=== PATIENT | male | born 1935 | race Caucasian/White ===

== ENCOUNTER 2024-01-29 11:48 | Day surgery (SDC) | payer MEDICARE, OTHER ==
[~2024-01-29] VITALS: Ht 170.2 cm; Wt 86.2 kg
[2024-01-29] VITALS (11 sets, daily range): BP systolic 95–120; BP diastolic 56–66; PULSE 60–64; RESP 15–21; TEMP 98.7; O2SAT 94–97
[~2024-01-29 11:48] MED LIST: DIPH25TA62 PO; PRED50TA PO; RANI-366 PO
[2024-01-29] MEDS ORDERED: heparin 1,000unit/ml 10ml vial 10 ML ONE (12:23)
[2024-01-29] MEDS ORDERED: fentaNYL/PF 50MCG/1 ML 2ML syringe ONE (12:23)
[2024-01-29] MEDS ORDERED: iohexol 300mg/ml 100ml inj. ONE (12:23)
[2024-01-29] MEDS ORDERED: verapamil 2.5 mg/ml inj IV ONE (12:23)
[2024-01-29] MEDS ORDERED: midazolam 1 mg/ML 2ml injection ONE (12:23)
[2024-01-29] MEDS ORDERED: LIDOcaine 1% (10mg/ml) 2ml vial ONE ×2 (12:23→12:42)
[2024-01-29] MEDS ORDERED: heparin 1,000 UNITS/NS 500ml 500 ML ONE (12:24)
[2024-01-29] MEDS ORDERED: nitroGLYCERIN 500mcg/5mL D5W 5 ML IV ONE (12:24)
[2024-01-29] MEDS ORDERED: LORazepam 0.5 MG tablet PO PRN (12:45)
[2024-01-29 13:00] LABS: BASOPHILS % (AUTO) 0.5 % (0-1); EOSINOPHILS # (AUTO) 0.2 X10'3 (0-0.9); EOSINOPHILS % (AUTO) 3.5 % (0-6); HEMATOCRIT 41.3 % (42.0-52.0); LYMPHOCYTES # (AUTO) 0.9 X10'3 (1.1-4.8); LYMPHOCYTES % (AUTO) 18.8 % (21-51); MEAN CORPUSCULAR HEMOGLOBIN 33.6 PG (27.0-31.0); MEAN CORPUSCULAR HGB CONC 33.9 g/dL (33.0-36.5); MEAN CORPUSCULAR VOLUME 99.3 FL (78-98); MEAN PLATELET VOLUME 6.8 FL (7.4-10.4); MONOCYTES # (AUTO) 0.5 X10'3 (0-0.9); NEUTROPHILS # (AUTO) 3.2 X10'3 (1.8-7.7); NEUTROPHILS % (AUTO) 67.2 % (42-75); PLATELET COUNT 256 X10'3 (140-440); RED BLOOD COUNT 4.16 X10'6 (4.70-6.10); WHITE BLOOD COUNT 4.8 X10'3 (4.5-11.0)
[2024-01-29] MEDS: diphenhydrAMINE 25mg capsule PO PRN (13:04)
[2024-01-29] MEDS ORDERED: OMEP20CA16 PO (13:05)
[2024-01-29] MEDS: normal saline 1,000 ML IV SCH (13:05)
[2024-01-29] MEDS ORDERED: GLIP5TAB23 PO (13:05)
[2024-01-29 13:09] LABS: INR 1.1 INR; PROTHROMBIN TIME 11.5 SECONDS (9.0-12.0)
[2024-01-29 13:10] LABS: ALBUMIN 3.4 G/DL (3.4-5.0); ANION GAP 6 (8-16); BLOOD UREA NITROGEN 18 MG/DL (7-18); BUN/CREATININE RATIO 20.7 (10.0-20.0); CALCIUM 9.2 MG/DL (8.5-10.1); CHLORIDE 105 MMOL/L (99-107); CREATININE 0.87 MG/DL (0.60-1.10); GLUCOSE 109 MG/DL (70-104); POTASSIUM 3.9 MMOL/L (3.5-5.1); SODIUM 139 MMOL/L (135-145); eCRCL 56 ML/MIN; eGFR 83 ML/MIN
[2024-01-29] MEDS ORDERED: BUDE10.2 INH (13:13)
[2024-01-29] MEDS ORDERED: LOSA50TA64 PO (13:13)
[2024-01-29] MEDS ORDERED: PIOG30TA10 PO (13:13)
[2024-01-29] MEDS ORDERED: METF-438 PO (13:13)
[2024-01-29] MEDS ORDERED: ATRNS BOTHNARES (13:15)
[2024-01-29] MEDS ORDERED: CYAN-34 PO (13:22)
[2024-01-29] MEDS ORDERED: ASCO500C17 PO (13:22)
[2024-01-29] MEDS ORDERED: ASPI81TA52 PO (13:22)
[2024-01-29] MEDS ORDERED: KRIL1CAP19 PO (13:22)
[2024-01-29] MEDS ORDERED: vitamin D3 (13:22)
[2024-01-29] MEDS ORDERED: CETI10TA19 PO (13:22)
[2024-01-29] MEDS ORDERED: [UNRECOGNIZED DRUG - OTHER] POPLITEAL (13:22)
[2024-01-29 14:17] LABS: ISTAT HGB ART 12.9 g/dl (14.0-17.9); ISTAT Hct ART 38 %PCV (42-52); ISTAT O2 SATURATION ARTERIAL 95 % (95-98); ISTAT SOURCE ART
[2024-01-29 14:37] LABS: CHOL/HDL RATIO 2.3 (0.00-4.99); CHOLESTEROL 119 MG/DL (0-200); HDL CHOLESTEROL 52 MG/DL (35-60); LDL CHOLESTEROL 63 MG/DL (50-100); TRIGLYCERIDES 58 MG/DL (20-135)
[2024-01-29] MEDS ORDERED: HYDROcodone/acetaminophen 10/325mg tab PO PRN (14:40)
[2024-01-29] MEDS ORDERED: HYDROcodone/acetaminophen 5mg/325mg tablet PO PRN (14:40)
[2024-01-29 14:54] LABS: ISTAT HGB MIX 12.6 g/dl (14.0-17.9); ISTAT Hct MIX 37 %PCV (42-52); ISTAT O2 SATURATION MIX VENOUS 72 % (60-80); ISTAT SOURCE VEN
== END 2024-01-29 17:20 | disposition home or self-care (01) ==
LOC: SSTAY O 11:48
PROVIDERS: ATTEND Student in an Organized Health Care Education/Training Program
DX: I35.0 Nonrheumatic aortic (valve) stenosis (principal); I10 Essential (primary) hypertension; E78.5 Hyperlipidemia, unspecified; E11.9 Type 2 diabetes mellitus without complications; K21.9 Gastro-esophageal reflux disease without esophagitis; Z79.899 Other long term (current) drug therapy
CPT/HCPCS: 36415; 80048; 80061; 82803; 82948; 85014; 85025; 85610; 93005; 93456; 99152; A6258; A6402; C1751; C1894; J1644; J2001; J2250; J3010; J3490; J7030; Q0163; Q9967; Z7610; 99153

== ENCOUNTER 2024-02-15 10:29 | Outpatient (CLI) | payer MEDICARE, OTHER ==
[~2024-02-15 10:29] MED LIST changes: +ASCO500C17 PO; +ASPI81TA52 PO; +ATRNS BOTHNARES; +BUDE10.2 INH; +CETI10TA19 PO; +CYAN-34 PO; -DIPH25TA62 PO; +GLIP5TAB23 PO; +IODIXANOL 320 MG/ML INFUS..BTL 100ML IV ONE; +KRIL1CAP19 PO; +LOSA50TA64 PO; +METF-438 PO; +OMEP20CA16 PO; +PIOG30TA10 PO; -PRED50TA PO; -RANI-366 PO; +[UNRECOGNIZED DRUG - OTHER] POPLITEAL; +vitamin D3
[2024-02-15 11:00] LABS: BASOPHILS % (AUTO) 0.5 % (0-1); EOSINOPHILS # (AUTO) 0.2 X10'3 (0-0.9); EOSINOPHILS % (AUTO) 3.3 % (0-6); HEMATOCRIT 41.5 % (42.0-52.0); HEMOGLOBIN 14.1 g/dl (14.0-17.9); LYMPHOCYTES # (AUTO) 0.8 X10'3 (1.1-4.8); LYMPHOCYTES % (AUTO) 17.8 % (21-51); MEAN CORPUSCULAR HEMOGLOBIN 33.7 PG (27.0-31.0); MEAN CORPUSCULAR HGB CONC 33.9 g/dL (33.0-36.5); MEAN CORPUSCULAR VOLUME 99.4 FL (78-98); MONOCYTES # (AUTO) 0.4 X10'3 (0-0.9); MONOCYTES % (AUTO) 8.9 % (2-12); NEUTROPHILS # (AUTO) 3.3 X10'3 (1.8-7.7); NEUTROPHILS % (AUTO) 69.5 % (42-75); PLATELET COUNT 256 X10'3 (140-440); RED BLOOD COUNT 4.17 X10'6 (4.70-6.10); RED CELL DISTRIBUTION WIDTH 14.2 % (11.5-14.5); WHITE BLOOD COUNT 4.7 X10'3 (4.5-11.0)
[2024-02-15 11:09] LABS: APTT 27 SECONDS (22-32); INR 1.1 INR; PROTHROMBIN TIME 11.8 SECONDS (9.0-12.0)
[2024-02-15 11:10] LABS: ALANINE AMINOTRANSFERASE 34 U/L (12-78); ALBUMIN 3.5 G/DL (3.4-5.0); ALKALINE PHOSPHATASE 82 IU/L (46-116); ANION GAP 8 (8-16); ASPARTATE AMINO TRANSFERASE 26 U/L (10-37); BILIRUBIN,TOTAL 0.5 MG/DL (0.1-1.0); BLOOD UREA NITROGEN 18 MG/DL (7-18); BUN/CREATININE RATIO 18.2 (10.0-20.0); CALCIUM 9.3 MG/DL (8.5-10.1); CHLORIDE 104 MMOL/L (99-107); CREATININE 0.99 MG/DL (0.60-1.10); GLUCOSE 235 MG/DL (70-104); POTASSIUM 4.3 MMOL/L (3.5-5.1); SODIUM 138 MMOL/L (135-145); TOTAL CARBON DIOXIDE 26.4 MMOL/L (24-32); TOTAL PROTEIN 6.9 G/DL (6.4-8.2); eGFR 72 ML/MIN
[2024-02-15 11:18] LABS: PRO BRAIN NATRIURETIC PEPTIDE 120 PG/ML (0-450)
[2024-02-15 13:31] VITALS: PULSE 60; RESP 16; O2SAT 98
== END 2024-02-15 23:59 | disposition home or self-care (01) ==
LOC: RAD 10:29
PROVIDERS: ATTEND Internal Medicine Cardiovascular Disease
DX: I35.0 Nonrheumatic aortic (valve) stenosis (principal); K57.90 Diverticulosis of intestine, part unspecified, without perforation or abscess without bleeding; R06.02 Shortness of breath; I65.29 Occlusion and stenosis of unspecified carotid artery; M47.816 Spondylosis without myelopathy or radiculopathy, lumbar region; M25.78 Osteophyte, vertebrae
CPT/HCPCS: 36415; 71046; 71275; 74174; 75572; 80053; 83880; 85025; 85610; 85730; 94010; 94727; 94729; 94760; Q9967

== ENCOUNTER 2024-03-29 06:07 | Inpatient (IN) | payer MEDICARE, OTHER ==
[2024-03-21 14:19] LABS: BASOPHILS % (AUTO) 0.6 % (0-1); EOSINOPHILS # (AUTO) 0.2 X10'3 (0-0.9); EOSINOPHILS % (AUTO) 3.4 % (0-6); LYMPHOCYTES % (AUTO) 18.3 % (21-51); MEAN CORPUSCULAR HEMOGLOBIN 33.6 PG (27.0-31.0); MEAN CORPUSCULAR HGB CONC 33.7 g/dL (33.0-36.5); MEAN CORPUSCULAR VOLUME 99.5 FL (78-98); MEAN PLATELET VOLUME 7.1 FL (7.4-10.4); MONOCYTES # (AUTO) 0.5 X10'3 (0-0.9); MONOCYTES % (AUTO) 9.6 % (2-12); NEUTROPHILS # (AUTO) 3.7 X10'3 (1.8-7.7); NEUTROPHILS % (AUTO) 68.1 % (42-75); PRE OP HEMATOCRIT 40.4 % (42.0-52.0); PRE OP HEMOGLOBIN 13.6 g/dL (14.0-17.9); PRE OP PLATELET COUNT 224 X10'3 (140-440); PRE OP WHITE BLOOD COUNT 5.4 10'3 (4.8-10.8); RED BLOOD COUNT 4.06 X10'6 (4.70-6.10)
[2024-03-21 14:20] LABS: BILIRUBIN,URINE NEGATIVE (Neg); CLARITY,URINE CLEAR (Clear); COLOR,URINE YELLOW (Yellow); GLUCOSE, URINE NEGATIVE (Neg); KETONES,URINE NEGATIVE (Neg); LEUKOCYTE ESTERASE ,URINE NEGATIVE (Neg); NITRITES, URINE NEGATIVE (Neg); OCCULT BLOOD,URINE NEGATIVE (Neg); PROTEIN,URINE NEGATIVE (Neg); UROBILINOGEN,URINE 0.2 E.U/dL (0.2-1.0)
[2024-03-21 14:24] LABS: UA COLLECTION TYPE VOIDED
[2024-03-21 14:33] LABS: PRE OP INR 1.2 INR; PRE OP PROTIME 12.1 SECONDS (9.0-12.0)
[2024-03-21 14:40] LABS: ALBUMIN 3.5 G/DL (3.4-5.0); ALBUMIN/GLOBULIN RATIO 1.1 (1.1-1.5); ALKALINE PHOSPHATASE 94 IU/L (46-116); BLOOD UREA NITROGEN 17 MG/DL (7-18); BUN/CREATININE RATIO 18.3 (10.0-20.0); CALCIUM 8.7 MG/DL (8.5-10.1); CHLORIDE 106 MMOL/L (99-107); CREATININE 0.93 MG/DL (0.60-1.10); PRE OP ALT 35 U/L (30-65); PRE OP ANION GAP 7 (8-16); PRE OP AST 27 U/L (10-37); PRE OP BILIRUB, TOTAL 0.4 MG/DL (0.0-1.0); PRE OP SODIUM 139 MMOL/L (135-145); PRO BRAIN NATRIURETIC PEPTIDE 139 PG/ML (0-450); TOTAL CARBON DIOXIDE 26.2 MMOL/L (24-32); TOTAL PROTEIN 6.7 G/DL (6.4-8.2); eGFR 77 ML/MIN
[2024-03-21 15:02] LABS: PRE OP GLUCOSE 215 MG/DL (70-104)
[2024-03-29] VITALS (25 sets, daily range): BP systolic 109–155; BP diastolic 56–77; PULSE 55–98; RESP 12–24; TEMP 97–97.2; O2SAT 93–100
[~2024-03-29] VITALS: Ht 170.2 cm; Wt 86.3 kg
[2024-03-29] MEDS: cefazolin 2gm/D5W 100mL 100 ML IV ONE (05:30)
[~2024-03-29 06:07] MED LIST changes: +CHOL100017 PO; -IODIXANOL 320 MG/ML INFUS..BTL 100ML IV ONE; +ondansetron/PF 4mg/2ml inj IV PRN; -vitamin D3
[2024-03-29] MEDS: famotidine 20mg tablet PO ONE (07:24)
[2024-03-29] MEDS: aspirin 325mg tablet PO ONE (07:26)
[2024-03-29] MEDS: vancomycin 1,500 MG in NS 300ml IV soln IV ONE (07:29)
[2024-03-29] MEDS: ringers solution, lacted 1,000 ML IV SCH (07:32)
[2024-03-29] MEDS ORDERED: LIDOcaine 1% (10mg/ml) 2ml vial ONE (08:12)
[2024-03-29] MEDS ORDERED: LIDOcaine 1% 30ml preserv. free vial ONE (08:16)
[2024-03-29] MEDS ORDERED: heparin 1,000 UNITS/NS 500ml 0 ML ONE (08:17)
[2024-03-29] MEDS ORDERED: iohexol 350MG/ML 100ml bottle IV ONE ×2 (08:17→08:29)
[2024-03-29] MEDS ORDERED: heparin 1,000 UNITS/NS 500ml 1,500 ML ONE (08:30)
[2024-03-29] MEDS ORDERED: sevoflurane 250ml liquid IH ONE (08:44)
[2024-03-29] MEDS ORDERED: fentaNYL/PF 50MCG/1 ML 2ML syringe ONE (08:49)
[2024-03-29] MEDS ORDERED: midazolam 1 mg/ML 2ml injection ONE (08:49)
[2024-03-29] MEDS ORDERED: heparin 1,000unit/ml 10ml vial 10 ML ONE (08:50)
[2024-03-29] MEDS ORDERED: propofol inj 20 ML IV ONE (08:50)
[2024-03-29] MEDS ORDERED: labetalol 20mg/4ml (5mg/ml) syringe IV PRN (10:00)
[2024-03-29] MEDS ORDERED: ondansetron/PF 4mg/2ml inj IV PRN (10:00)
[2024-03-29] MEDS ORDERED: pantoprazole 40mg Tablet.DR PO PRN (10:00)
[2024-03-29] MEDS ORDERED: potassium CL 10mEq/100ml bag 100 ML IV PRN (10:00)
[2024-03-29] MEDS ORDERED: DEXTROSE 15 GM of carb/4 tabs (each vial/BOTTLE has 4 tablets) PO PRN ×2 (10:00)
[2024-03-29] MEDS ORDERED: potassium Cl 20 mEq SR tablet PO PRN (10:00)
[2024-03-29] MEDS ORDERED: hydrALAZINE 20mg/ml inj. IV PRN (10:00)
[2024-03-29] MEDS ORDERED: glucagon, human recombinant 1mg kit SUBCUT PRN (10:00)
[2024-03-29] MEDS ORDERED: dextrose 50%-water 50ml dispensing syringe IV PRN ×2 (10:00)
[2024-03-29] MEDS ORDERED: magnesium sulf-water 2g/50mL 50 ML IV PRN (10:00)
[2024-03-29] MEDS ORDERED: potassium Cl 40MEQ/270ML bag 250 ML IV PRN (10:00)
[2024-03-29] MEDS ORDERED: magnesium sulf-water 4G/100mL 100 ML IV PRN (10:00)
[2024-03-29] MEDS ORDERED: ALPRAZolam 0.25mg tablet PO PRN (10:00)
[2024-03-29] MEDS ORDERED: proCHLORperazine 10 MG/2 ml inj IV PRN (10:00)
[2024-03-29] MEDS ORDERED: acetaminophen 325mg tablet PO PRN (10:00)
[2024-03-29] MEDS ORDERED: potassium Cl 40MEQ/1/2NS 520ml 520 ML IV PRN (10:00)
[2024-03-29] MEDS ORDERED: docusate sod 100mg capsule PO PRN (10:00)
[2024-03-29] MEDS ORDERED: potassium Cl 20mEq/100mL bag 100 ML IV PRN (10:00)
[2024-03-29] MEDS ORDERED: diphenhydrAMINE 25mg capsule PO PRN (10:00)
[2024-03-29] MEDS ORDERED: HYDROcodone/acetaminophen 5mg/325mg tablet PO PRN (10:00)
[2024-03-29] MEDS: INSULIN LISPRO 100 UNIT/ML INSULN.PEN MULTI-DOSE SQ SCH ×2 (14:05→14:06)
[2024-03-29] MEDS: protamine sulfate 10mg/ml inj. ONE (14:06)
[2024-03-29] MEDS: phenylephrine inj 50 MG in normal saline 250ml IV solN IV SCH (14:07)
[2024-03-29] MEDS: normal saline 1000ml 1,000 ML IV SCH (15:27)
[2024-03-29] MEDS: ceFAZolin 1GM/D5W- ADD-VANTAGE 50 ML IV SCH (15:27)
[2024-03-29] MEDS: sod chloride 0.9% 10ml flush syringe IV SCH (16:00)
[2024-03-29] MEDS ORDERED: HALLS - SOOTHE MENTHOL 1.8 MG cough drop LOZENGE MM PRN (16:10)
[2024-03-29] MEDS: vancomycin/NS 1 GM ADD-VANTAGE 250 ML IV SCH (20:24)
[2024-03-30 02:00] VITALS: BP 115/63; PULSE 61; RESP 17; TEMP 98; O2SAT 100
[2024-03-30 07:43] VITALS: BP 116/57; PULSE 60; RESP 16; TEMP 96.8; O2SAT 96
[2024-03-30] MEDS: aspirin 81mg, enteric-coated 1 TAB TABLET.DR PO SCH (07:45)
[2024-03-30] MEDS: cholecalciferol (vitamin D3) 1,000 unit (25mcg) tablet PO SCH (07:45)
[2024-03-30] MEDS: aspirin 81mg tab.chew PO SCH (07:46)
[2024-03-30] MEDS: cyanocobalamin 500mcg tablet PO SCH (07:46)
[2024-03-30] MEDS: ascorbic acid 500mg tablet PO SCH (07:47)
[2024-03-30] MEDS: cetirizine 10mg tablet PO SCH (07:47)
[2024-03-30] MEDS: pantoprazole 40mg Tablet.DR PO SCH (07:48)
[2024-03-30] MEDS: losartan 50mg tablet PO SCH (07:49)
[2024-03-30] MEDS ORDERED: IPRATROPIUM Bromide 0.06% Nas 1 SPRAY BOTTLE NS SCH (08:00)
[2024-03-30] MEDS: PHOSPHO PO SCH (08:00)
[2024-03-30] MEDS: DHA PO SCH (08:00)
[2024-03-30] MEDS: AST PO SCH (08:00)
[2024-03-30] MEDS: [UNRECOGNIZED DRUG - OTHER] PO SCH (08:00)
[2024-03-30] MEDS: Budesonide/Formoterol Fumarate (Symbicort 160-4.5 Mcg Inhaler) IH SCH (08:00)
[2024-03-30] MEDS: KRILL PO SCH (08:00)
[2024-03-30] MEDS: EPA PO SCH (08:00)
[2024-03-30 08:35] LABS: BASOPHILS % (AUTO) 0.2 % (0-1); EOSINOPHILS % (AUTO) 0.4 % (0-6); HEMATOCRIT 38.5 % (42.0-52.0); HEMOGLOBIN 13.2 g/dl (14.0-17.9); LYMPHOCYTES # (AUTO) 0.7 X10'3 (1.1-4.8); LYMPHOCYTES % (AUTO) 7.3 % (21-51); MEAN CORPUSCULAR HEMOGLOBIN 34.1 PG (27.0-31.0); MEAN CORPUSCULAR HGB CONC 34.3 g/dL (33.0-36.5); MEAN CORPUSCULAR VOLUME 99.4 FL (78-98); MONOCYTES # (AUTO) 0.8 X10'3 (0-0.9); MONOCYTES % (AUTO) 8.5 % (2-12); NEUTROPHILS # (AUTO) 8.3 X10'3 (1.8-7.7); NEUTROPHILS % (AUTO) 83.6 % (42-75); PLATELET COUNT 177 X10'3 (140-440); RED BLOOD COUNT 3.87 X10'6 (4.70-6.10); RED CELL DISTRIBUTION WIDTH 13.7 % (11.5-14.5)
[2024-03-30 09:01] LABS: ALANINE AMINOTRANSFERASE 35 U/L (12-78); ALBUMIN 3.2 G/DL (3.4-5.0); ALBUMIN/GLOBULIN RATIO 0.9 (1.1-1.5); ALKALINE PHOSPHATASE 80 IU/L (46-116); ANION GAP 10 (8-16); ASPARTATE AMINO TRANSFERASE 30 U/L (10-37); BILIRUBIN,TOTAL 0.7 MG/DL (0.1-1.0); BLOOD UREA NITROGEN 13 MG/DL (7-18); BUN/CREATININE RATIO 13.7 (10.0-20.0); CALCIUM 8.8 MG/DL (8.5-10.1); CHLORIDE 103 MMOL/L (99-107); CREATININE 0.95 MG/DL (0.60-1.10); GLUCOSE 153 MG/DL (70-104); MAGNESIUM 1.6 MG/DL (1.5-2.4); POTASSIUM 3.7 MMOL/L (3.5-5.1); PRO BRAIN NATRIURETIC PEPTIDE 288 PG/ML (0-450); SODIUM 141 MMOL/L (135-145); TOTAL CARBON DIOXIDE 28.1 MMOL/L (24-32); TOTAL PROTEIN 6.6 G/DL (6.4-8.2); eCRCL 51 ML/MIN; eGFR 75 ML/MIN
[2024-03-30 11:41] VITALS: BP 114/63; PULSE 66; RESP 16; TEMP 98.7; O2SAT 95
[2025-03-29] MEDS ORDERED: nitroPRUSSIDE (NIPRIDE) (200MCG/ML) 100ML Drip IV SCH (05:30)
== END 2024-03-30 13:18 | disposition home or self-care (01) | DRG 267 ==
LOC: PAS IN 06:07 → PCU 3S 17:59
PROVIDERS: ADMIT Internal Medicine Cardiovascular Disease; ATTEND Internal Medicine Cardiovascular Disease
PROC: 03HY32Z Insertion of Monitoring Device into Upper Artery, Percutaneous Approach (ICD-10-PCS; 2024-03-29)
PROC: B41D1ZZ Fluoroscopy of Aorta and Bilateral Lower Extremity Arteries using Low Osmolar Contrast (ICD-10-PCS; 2024-03-29)
PROC: 02RF38Z Replacement of Aortic Valve with Zooplastic Tissue, Percutaneous Approach (ICD-10-PCS; principal; 2024-03-29 08:44)
DX: I35.0 Nonrheumatic aortic (valve) stenosis (principal); Z00.6 Encounter for examination for normal comparison and control in clinical research program; E11.9 Type 2 diabetes mellitus without complications; E78.5 Hyperlipidemia, unspecified; I10 Essential (primary) hypertension; Z79.84 Long term (current) use of oral hypoglycemic drugs
CPT/HCPCS: 33361; 36415; 71045; 71046; 76937; 80053; 81003; 82948; 83036; 83735; 83880; 85025; 85347; 85610; 85730; 86885; 86900; 86901; 86920; 87081; 93005; 93306; 93308; A4618; A6258; A6449; C1756; C1760; C1769; C1894; G0378; J0690; J1100; J1644; J1815; J2250; J2371; J2405; J2704; J2720; J3010; J3370; J3490; J7030; J7040; J7050; J7120; Q9967